=== PATIENT | male | born 1950 | race Caucasian/White ===

== ENCOUNTER 2024-07-29 05:54 | Emergency (ER) | payer OTHER, MEDICARE ==
[~2024-07-29] VITALS: Ht 167.6 cm; Wt 66.8 kg
[2024-07-29] MEDS ORDERED: EPINEPHrine HCL 1 MG/10 ML SYRG IV ONE (05:55)
[2024-07-29] MEDS ORDERED: ATROPINE SULF 1 MG/10ml SYR IM ONE (05:55)
[2024-07-29 05:57] VITALS: TEMP 97.6
--- NOTE | 2024-07-29 06:13 | ED.PDOC ---
HPI Comments 73 year old male presents to the ED with a chief complaint of chest pain onset 2 days. Patient states he began experiencing chest pain 2 days ago, noticed pain worsen today (07/29/24) around 01:00. He was sleeping when noticed pain worsen, pressure sensation radiating from RT side chest to RT hand with a tingling sensation, as well as shortness of breath. He denies any past cardiac medical history. During assessment, BP 154/88, HR 91, O2 sat 99% RA. PMHx HTN, DM, HLD. Denies abdominal pain, nausea, vomiting, diarrhea, fever, chills. No other symptoms or modifying factors present at this time. Chief Complaint: Chest Pain Time Seen by MD: 06:02 Reviewed Notes: Medications, Allergies Allergies: Coded Allergies: NO KNOWN ALLERGIES (Unverified , 07/29/24) Information Source: Patient Mode of Arrival: Ambulatory Severity: Moderate Timing: Days Duration: Since onset Prehospital treatment: None Location: Chest (R) Radiation: Hand (R) Quality: Pressure Onset: At Rest Cardiac Risk Factors: Hyperlipidemia, HTN, Diabetes PE Risk Factors: None History of: None Modifying Factors: Nothing Associated Signs and Symptoms: SOB Past Medical History PAST MEDICAL HISTORY: DM, High Lipids, HTN Surgical History: Denies all surgeries Family History Family History: Unknown Social History Smoker: Non-Smoker Alcohol: Denies ETOH Use Drugs: Denies Drug Use Lives In: Home Constitutional: denies: chills, diaphoresis, fatigue, fever, malaise, sweats, weakness, others EENTM: denies: blurred vision, double vision, ear bleeding, ear discharge, ear drainage, ear pain, ear ringing, eye pain, eye redness, hearing loss, mouth pain, mouth swelling, nasal discharge, nose bleeding, nose congestion, nose pain, photophobia, tearing, throat pain, throat swelling, voice changes, others Respiratory: reports: shortness of breath; denies: cough, hemoptysis, or thopnea, SOB at rest, SOB with excertion, stridor, wheezing, others Cardiovascular: reports: chest pain; denies: dizzy spells, diaphoresis, Dyspnea on exertion, edema, irregular heart beat, left arm pain, lightheadedness, palpitations, PND, syncope, others Gastrointestinal: denies: abdomen distended, abdominal pain, blood streaked bowels, constipated, diarrhea, dysphagia, difficulty swallowing, hematemesis, melena, nausea, poor appetite, poor fluid intake, rectal bleeding, rectal pain, vomiting, others Genitourinary: denies: burning, dysuria, flank pain, frequency, hematuria, incontinence, penile discharge, penile sore, pain, testicle pain, testicle swelling, urgency, others Neurological: denies: dizziness, fainting, headache, left sided numbness, left sided weakness, numbness, paresthesia, pre-existing deficit, right sided numbness, right sided weakness, seizure, speech problems, tingling, tremors, we akness, others Musculoskeletal: denies: back pain, gout, joint pain, joint swelling, muscle pain, muscle stiffness, neck pain, others Integumetry: denies: bruises, change in color, change in hair/nails, dryness, laceration, lesions, lumps, rash, wounds, others Allergic/Immunocompromised: denies: Difficulty Healing, Frequent Infections, Hives, Itching, others Hematologic/Lymphatic: denies: anemia, blood clots, easy bleeding, easy bruising, swollen glands, others Endocrine: denies: excessive hunger, excessive sweating, excessive thirst, excessive urination, flushing, intolerance to cold, intolerance to heat, unexplained weight gain, unexplained weight loss, others Psychiatric: reports: anxiety; denies: bipolar disorder, depression, hopeless, panic disorder, schizophrenia, sleepless, suicidal, others All Other Systems: Reviewed and Negative Physical Exam General Appearance: Moderate Distress, Normal, Other (anxious) HEENT: Normal ENT Inspection, Pharynx Normal, TMs Normal Neck: Full Range of Motion, Non-Tender, Normal, Normal Inspection Respiratory: Chest Non-Tender, Lungs Clear, No Accessory Muscle Use, No Respiratory Distress, Normal Breath Sounds Cardiovascular: No Edema, No JVD, No Murmur, No Gallop, Normal Peripheral Pulses, Regular Rate/Rhythm Breast Exam: Deferred Gastrointestinal: No Organomegaly, Non Tender, No Pulsatile Mass, Normal Bowel Sounds, Soft Genitalia: Deferred Pelvic: Deferred Rectal: Deferred Extremities: No calf tenderness, Normal capillary refill, Normal inspection, Normal range of motion, Non-tender, No pedal edema Musculoskeletal : Apperance: Normal 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 Anterior infract, acute (LAD) ST elevation V1 to V4, depression V6 with lateral leads. Consulted [employer] consumer services consultant Press Secretary, Dr. Sweeney. Stemi activated. EKG #2: Cardiac Rhythm: NSR (74 bpm) ST: Ant, Lat, Nonsp Comments Low voltage, precordial leads, Nonspecific T abnormalities, lateral leads, Borderline ST elevation, anterior leads. ST elevation V1 to V4, depression V6 with lateral leads. EKG #3: Comments ST elevation V1 to V4, depression V6 with lateral leads - decreased from 1st and 2nd EKG. Was a procedure done? Was a procedure done?: No CP Differential Dx Differential Diagnosis: Other (see below) Differential Diagnosis: Angina, Aortic dissection, Chest Wall Pain, Cholelithiasis, Costochondritis, Esophageal reflux/spasm, Gastritis, Myocardial Infarction, Pericarditis, Pneumonia, Pneumothorax, Pulmonary Embolus X-Ray, Labs, Meds, VS Vital Signs Date Time Temp Pulse Resp B/P (MAP) Pulse Ox O2 Delivery O2 Flow Rate FiO2 07/29/24 06:39 74 07/29/24 06:31 82 07/29/24 06:29 82 12 151/72 07/29/24 06:27 151/72 07/29/24 06:19 80 07/29/24 05:57 97.6 89 16 154/88 (110) 97 97.6 Lab Test 07/29/24 05:57 Range/Units White Blood Count 6.4 4.4-10.8 10^3/uL Red Blood Count 4.90 4.5-5.90 10^6/uL Hemoglobin 15.0 13.5-17.5 g/dL Hematocrit 43.6 41.0-53.0 % Mean Corpuscular Volume 88.9 80.0-100.0 fL Mean Corpuscular Hemoglobin 30.6 28.0-32.0 pg Mean Corpuscular Hemoglobin Concent 34.4 32.0-36.0 g/dL Red Cell Distribution Width 12.9 11.8-14.3 % Platelet Count 166 140-450 10^3/uL Mean Platelet Volume 9.3 6.9-10.8 fL Neutrophils (%) (Auto) 69.5 37.0-80.0 % Lymphocytes (%) (Auto) 16.5 10.0-50.0 % Monocytes (%) (Auto) 11.6 0.0-12.0 % Eosinophils (%) (Auto) 1.6 0.0-7.0 % Basophils (%) (Auto) 0.8 0.0-2.0 % Neutrophils # (Auto) 4.4 1.6-8.6 10 ^3/uL Lymphocytes # (Auto) 1.1 0.4-5.4 10 ^3/uL Monocytes # (Auto) 0.7 0-1.3 10 ^3/uL Eosinophils # (Auto) 0.1 0-0.8 10 ^3/uL Basophils # (Auto) 0.1 0-0.2 10 ^3/uL Nucleated Red Blood Cells 0.1 % Sodium Level 139 136-145 mmol/L Potassium Level 3.3 L 3.5-5.1 mmol/L Chloride Level 104 98-107 mmol/L Carbon Dioxide Level 25 20-31 mmol/L Anion Gap 10 5-15 Blood Urea Nitrogen 15 9-23 mg/dL Creatinine 1.13 0.700-1.30 mg/dL Glomerular Filtration Rate Calc 68 >90 mL/min BUN/Creatinine Ratio 13.3 10.0-20.0 Serum Glucose 306 H 74-106 mg/dL Calcium Level 9.5 8.7-10.4 mg/dL Magnesium Level 1.9 1.6-2.6 mg/dL Total Bilirubin 0.6 0.2-1.0 mg/dL Aspartate Amino Transferase (AST) 32 13-40 U/L Alanine Aminotransferase (ALT) 39 7-40 U/L Alkaline Phosphatase 117 H 46-116 U/L Troponin I High Sensitivity 467 *H </=54 ng/L Total Protein 6.5 5.7-8.2 g/dL Albumin 4.2 3.2-4.8 g/dL Current Medications Medications (Trade) Dose Ordered Sig/Epi Route Start Time Stop Time Status Last Admin Aspirin 324 mg ONCE ONCE PO 07/29/24 06:15 07/29/24 06:16 DC 07/29/24 06:27 Nitroglycerin (Ntrostat Sublingual) 0.4 mg ONCE ONCE SL 07/29/24 06:30 07/29/24 06:31 DC 07/29/24 06:27 Morphine Sulfate 2 mg ONCE ONCE IV 07/29/24 06:30 07/29/24 06:31 DC 07/29/24 06:29 Clopidogrel Bisulfate (Plavix) 600 mg ONCE ONCE PO 07/29/24 06:30 07/29/24 06:31 DC 07/29/24 06:31 Time of 1ST Reevaluation: 06:32 Reevaluation 1ST: Unchanged Time of 2ND Reevaluation: 06:40 Reevaluation 2ND: Improved Patient Education/Counseling: Diagnosis, Treatment, Prognosis, Need For Follow Up Family Education/Counseling: No Family Present Additional Information The following tests were ordered, and results were reviewed by me: TROP -X3, EKG -X3, CBC, CMP, MAGNESIUM, XY CHEST I reviewed and agreed with the following test results read by other providers: XY CHEST I discussed treatment and results with medical personnel and: Patient AND Dr Sweeney, cardiology pt was taken to slab off mill tender with STEMI activated. his symptoms improved with no significant dynamic EKG changes Departure 1 Departure Time of Disposition: 07:13 Impression: Primary Impression: STEMI (ST elevation myocardial infarction) Disposition: ADMITTED INPATIENT Admit to: slab off mill tender Condition: Serious Critical Care Note Critical Care Time?: Yes (35 min-critical care time only) Critical care comment: Due to concerns for patients condition deteriorating, the care required my highest level of attention and readiness to intervene. I assessed the patient, reviewed the medical records, ordered the appropriate tests and treatments, then reassessed for results and responsiveness. I communicated with medical personnel and consultants and formulated a plan of care. Total critical care time excludes any procedures Stability Stability form required: No Heart Score Heart Score: Heart Score Response (Comments) Value History Highly Suspicious [address]-Deviation 2 Age >65 2 Risk Factors >3 or Hx ASHD 2 Troponin >3 x's Normal limit 2 Total 10 I personally scribed for MARTY GUTIÉRREZ MD ([email or web address]) on 07/29/24 at 06:13. Electronically submitted by Rupal Abbasi ([email or web address]). I personally scribed for MARTY GUTIÉRREZ MD ([email or web address]) on 07/29/24 at 06:18. Electronically submitted by Rupal Abbasi ([email or web address]). I personally scribed for MARTY GUTIÉRREZ MD ([facility]) on 07/29/24 at 06:31. Electronically submitted by Rupal Abbasi ([email or web address]). I personally scribed for MARTY GUTIÉRREZ MD ([facility]) on 07/29/24 at 06:42. Electronically submitted by Rupal Abbasi ([email or web address]). I personally scribed for MARTY GUTIÉRREZ MD ([facility]) on 07/29/24 at 06:54. Electronically submitted by Rupal Abbasi ([email or web address]). I personally scribed for MARTY GUTIÉRREZ MD ([facility]) on 07/29/24 at 06:58. Electronically submitted by Rupal Abbasi ([email or web address]). MARTY GUTIÉRREZ MD Jul 29, 2024 06:13
[2024-07-29] MEDS: NITROGLYCERIN 0.4 MG SL TAB SL ONE (06:27)
[2024-07-29] MEDS: ASPirin 81 mg TAB PO ONE (06:27)
[2024-07-29] MEDS: MORPHINE SULFATE INJ 2 MG/ml SYRG IV ONE (06:29)
[2024-07-29] MEDS: CLOPIDOGREL BISULFATE 75 MG TAB PO ONE (06:31)
[2024-07-29 06:32] LABS: Basophils # (auto) 0.1 10 ^3/uL (0-0.2); Basophils % (auto) 0.8 % (0.0-2.0); Eosinophils # (auto) 0.1 10 ^3/uL (0-0.8); Eosinophils % (auto) 1.6 % (0.0-7.0); Hematocrit 43.6 % (41.0-53.0); Lymphocytes # (auto) 1.1 10 ^3/uL (0.4-5.4); Lymphocytes % (auto) 16.5 % (10.0-50.0); Mean Corpuscular Hemoglobin 30.6 pg (28.0-32.0); Mean Corpuscular Hgb Conc. 34.4 g/dL (32.0-36.0); Mean Corpuscular Volume 88.9 fL (80.0-100.0); Monocytes # (auto) 0.7 10 ^3/uL (0-1.3); Monocytes % (auto) 11.6 % (0.0-12.0); Neutrophils # (auto) 4.4 10 ^3/uL (1.6-8.6); Neutrophils % (auto) 69.5 % (37.0-80.0); Nucleated Red Blood Cells % 0.1 %; Platelet Count (auto) 166 10^3/uL (140-450); Red Cell Distribution Width 12.9 % (11.8-14.3); White Blood Cell 6.4 10^3/uL (4.4-10.8)
--- NOTE | 2024-07-29 06:39 | DVH ---
CHEST RADIOGRAPH Indication: cp Technique: Single frontal view of the chest was obtained COMPARISON: None FINDINGS: Lines and Tubes: None Lungs: Clear Pleura: No effusion. No pneumothorax. Cardiomediastinal contours: Unremarkable Bones: Unremarkable IMPRESSION: No acute disease.
--- NOTE | 2024-07-29 06:42 | ECG ---
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
[2024-07-29 06:45] VITALS: BP 136/83; PULSE 72; RESP 14; O2SAT 98
[2024-07-29] MEDS ORDERED: ANGIOMAX 250 MG VIAL IV ONE ×2 (06:46→07:52)
[2024-07-29] MEDS ORDERED: HEPARIN SODIUM (PORCINE) 5000 UNITS/ML 1ML VIAL ONE (06:46)
[2024-07-29] MEDS ORDERED: MIDAZOLAM HCL 2MG/2ML 2ml VIAL (1mg/ml) ONE (06:47)
[2024-07-29] MEDS ORDERED: VERAPAMIL 2.5MG/ML INJ 2ML VIAL IV ONE (06:47)
[2024-07-29] MEDS ORDERED: fentaNYL CITRATE 100 MCG/2 ML VL ONE (06:47)
[2024-07-29] MEDS ORDERED: SODIUM CHL 0.9% 50 ML ONE ×2 (06:47→07:52)
[2024-07-29] MEDS ORDERED: IODIXANOL 320MG/ML 100ML BTL IV ONE ×2 (06:47→07:56)
[2024-07-29] MEDS ORDERED: NITROGLYCERIN 50MG/250ML 250 ML IV ONE (06:47)
[2024-07-29] MEDS ORDERED: HEPARIN IN NS 1000Units/500mL 1,500 ML ONE (06:48)
[2024-07-29] MEDS ORDERED: LIDOCAINE 2%HCL (LOCAL ANESTH.) INJ 20ML MDV ONE (06:48)
[2024-07-29 06:52] LABS: Alanine Aminotransferase 39 U/L (7-40); Albumin 4.2 g/dL (3.2-4.8); Anion Gap 10 (5-15); Aspartate Aminotransferase 32 U/L (13-40); BUN/Creatinine Ratio 13.3 (10.0-20.0); Blood Urea Nitrogen 15 mg/dL (9-23); Calcium 9.5 mg/dL (8.7-10.4); Carbon Dioxide 25 mmol/L (20-31); Chloride 104 mmol/L (98-107); Magnesium 1.9 mg/dL (1.6-2.6); Sodium 139 mmol/L (136-145); Total Protein 6.5 g/dL (5.7-8.2)
[2024-07-29 06:53] LABS: Bilirubin, Total 0.6 mg/dL (0.2-1.0)
[2024-07-29 06:54] LABS: Alkaline Phosphatase 117 U/L (46-116); Glucose 306 mg/dL (74-106); Potassium 3.3 mmol/L (3.5-5.1)
[2024-07-29] MEDS ORDERED: ATROPINE SULF 1 MG/10ml SYR ONE (08:13)
[2024-07-29] MEDS ORDERED: ONDANSETRON HCL 4 MG/2 ML VIAL ONE (08:20)
[2024-07-29] MEDS ORDERED: NOREPINEPHRINE 8 MG/250ML KIT 250 ML IV ONE (08:24)
[2024-07-29] MEDS ORDERED: PHENYLEPHRINE IV 250 ML IV ONE (08:39)
--- NOTE | 2024-07-29 09:11 | DVHINCON2 ---
Date Seen: Jul 29, 2024 Referring Physician Emergency room Reason for Consultation Acute myocardial infarction /STEMI History of Present Illness 73-year-old gentleman with a history of hypertension presents with chest pain of two days duration. Intermittently on and off. It restarted again at 1:00 a.m. this morning. He came to the emergency room and was noted to have Q-waves throughout the anterior lateral leads suggesting a completed infarct. Given he was still having some degree of chest pain he was deemed a candidate for cardiac catheterization. He was taken to the cardiac catheterization laboratory urgently. Past Medical History Patient has a history of diabetes mellitus he states for about 10 years as well as hypertension and hyperlipidemia. He has had three previous surgeries all related to dermatological issues . Past Surgical History Past surgical history significant per dermatology surgery. Nothing else Family History Noted history of coronary disease. His parents in their 50s Social History He is a nondrinker nonsmoker. He is lives with his and has ch ildren Allergies: Coded Allergies: NO KNOWN ALLERGIES (Unverified , 07/29/24) Review of Systems No constitutional symptoms of fevers chills or weight loss. Cardiac and respiratory negative with the exception of that noted above. Chest pain started several months ago in recurred most recently over the last several days. GI and Negative. Musculoskeletal endocrine hematologic negative. Vital Signs Vital Signs Date Time Temp Pulse Resp B/P (MAP) Pulse Ox O2 Delivery O2 Flow Rate FiO2 07/29/24 06:39 74 07/29/24 06:29 12 151/72 07/29/24 05:57 97.6 97 97.6 Physical Exam Patient is awake alert and oriented he has a [id number] pain. HEENT examination is otherwise unremarkable well hydrated moderate jugular distention no carotid bruits. Lungs reveal crackles at the bases. Heart exam reveals an S4 gallop. Abdominal examination is unremarkable. Extremities reveal perfusion without clubbing cyanosis no edema. Neurologically intact. Integumentary is otherwise within normal limits. He is not clammy or diaphoretic. Labs/Diagnostic Data Labs Test 07/29/24 05:57 Range/Units White Blood Count 6.4 4.4-10.8 10^3/uL Red Blood Count 4.90 4.5-5.90 10^6/uL Hemoglobin 15.0 13.5-17.5 g/dL Hematocrit 43.6 41.0-53.0 % Mean Corpuscular Volume 88.9 80.0-100.0 fL Mean Corpuscular Hemoglobin 30.6 28.0-32.0 pg Mean Corpuscular Hemoglobin Concent 34.4 32.0-36.0 g/dL Red Cell Distribution Width 12.9 11.8-14.3 % Platelet Count 166 140-450 10^3/uL Mean Platelet Volume 9.3 6.9-10.8 fL Neutrophils (%) (Auto) 69.5 37.0-80.0 % Lymphocytes (%) (Auto) 16.5 10.0-50.0 % Monocytes (%) (Auto) 11.6 0.0-12.0 % Eosinophils (%) (Auto) 1.6 0.0-7.0 % Basophils (%) (Auto) 0.8 0.0-2.0 % Neutrophils # (Auto) 4.4 1.6-8.6 10 ^3/uL Lymphocytes # (Auto) 1.1 0.4-5.4 10 ^3/uL Monocytes # (Auto) 0.7 0-1.3 10 ^3/uL Eosinophils # (Auto) 0.1 0-0.8 10 ^3/uL Basophils # (Auto) 0.1 0-0.2 10 ^3/uL Nucleated Red Blood Cells 0.1 % Sodium Level 139 136-145 mmol/L Potassium Level 3.3 L 3.5-5.1 mmol/L Chloride Level 104 98-107 mmol/L Carbon Dioxide Level 25 20-31 mmol/L Anion Gap 10 5-15 Blood Urea Nitrogen 15 9-23 mg/dL Creatinine 1.13 0.700-1.30 mg/dL Glomerular Filtration Rate Calc 68 >90 mL/min BUN/Creatinine Ratio 13.3 10.0-20.0 Serum Glucose 306 H 74-106 mg/dL Calcium Level 9.5 8.7-10.4 mg/dL Magnesium Level 1.9 1.6-2.6 mg/dL Total Bilirubin 0.6 0.2-1.0 mg/dL Aspartate Amino Transferase (AST) 32 13-40 U/L Alanine Aminotransferase (ALT) 39 7-40 U/L Alkaline Phosphatase 117 H 46-116 U/L Troponin I High Sensitivity 467 *H </=54 ng/L Total Protein 6.5 5.7-8.2 g/dL Albumin 4.2 3.2-4.8 g/dL EKG shows sinus rhythm. Q-waves throughout the anterior lateral leads suggesting a completed myocardial infarction. ST elevations noted. Anterior leads affected. Assessment Recent/Acute myocardial infarction. Probably completed Infarct. diabetes hypertension. Hyperlipidemia. Plan/Recommendation Given patient is still has a recurrent chest pain we will Take patient to cytogenetics laboratory manager for salvage angioplasty risks and benefits explained. Approximately 60 minutes was taken in evaluating and coordinating the care Plan discussed with: Patient, Spouse NYHA Physical activity limitations: Class3(Marked) ordinary Date of Service: Jul 29, 2024 Billing Provider: JOSE ROBERTO VEGAS Sr., MD Cardiology Common Codes: 82840-QOPWAFC INP/OBS CARE (High) Cardiology Procedure Codes: 56200-JBVWUV VESSEL W/I VASC FAM, 58010 -PTCA W/STENT PLACEMENT, 90722-FBZF FOR STEMI W/STENT, 18214-MWQB ADD COR ART/BRNCH/GRFT, 83489-WGRI HEART CATH W/INTRA INJ JOSE ROBERTO VEGAS Sr., MD Jul 29, 2024 09:11
--- NOTE | 2024-07-29 09:29 | DVHOP2 ---
Operative Report - 2 Report Details Date: 07/29/24 Preop Diagnosis: recent/acute ST segment elevation myocardial infarction Postop Diagnosis: Myocardial infarction. Cardiogenic shock. Ischemic cardiomyopathy. Surgeon: Jose Roberto Sweeney MD Anesthesiologist: Conscious sedation. Anesthesia: Mac, Local ( % and fentanyl throughout the procedure. I personally supervised the administration monitoring of the patient throughout.) Consent: The patient was informed of the risks and benefits of the procedure. These include but are not limited to complications of anesthesia, postoperative infection, incomplete relief of symptoms, recurrence of symptoms, damage to blood vessels, nerves and tendons, deep venous thrombosis, pulmonary embolism and possible need for repeat surgery in the future. Complications: Occlusion of RCA .cardiogenic shock Estimated Blood Loss: 10 cc Findings: Occluded LAD. Severe stenosis of the RCA with multi lesions. Indications for Surgery: Occluded LAD. Severely stenotic RCA. Name of Procedure Performed Bilateral cine coronary angiography ventriculography. PTCA stenting aperture rule LAD. Unsuccessful angioplasty of the RCA. Procedure Details Procedure Details: Prior local anesthesia with 2% lidocaine to the right wrist and full informed consent obtained. Patient was prepped and draped in usual fashion followed by placement of a six [place]ian sheath into the right radial artery. A 3-0 EBU guide was then placed into the ventricle and ventriculography performed. We used the coring to cannulate the RCA and left main. Hemodynamics aortic blood pressure was 90/50. End-diastolic pressure was 18. There was no gradient across the aortic valve on pullback. Coronary anatomy RCA has a shepherds crook its proximal portion and is normal. Ostial and proximal segment. At its mid segment there is a 99% stenosis follow up on a tandem lesion of another 99% stenosis tandem and distal to mid lesion there was diminished JENY one flow to the posterolateral and PDA. Left main is normal. Left anterior descending is a large vessel. It is occluded 100% proximally. The circumflex has two marginals free of significant disease. Ventriculography in the [place] projection shows an EF of approximately 25% with anterior apical and inferior apical and mid inferior wall hypokinesis to akinesis. Anterior apical segment is akinetic with an enlarged left ventricle. Salvage angioplasty was performed for which we 3.0 EBU guide was then placed into the left main and a Specter wire used to cross the area of occlusion. This vessel was noted to be tortuous and ectatic. We identified several lesions in the proximal portion however there was associated spasm. We gave approximately 400 mcg intracoronary nitroglycerin to help relieve the spasm. Did see what appeared to be significant relief of spasm on for which the we then placed an intravascular ultrasound device to evaluate the LAD. We noted several areas of disease from the midportion proximally. We placed a 12 by 18 mm Medtronic alfredito drug-eluting stent into the mid to proximal portion and overlapping slightly a 34 by three point 0 stent from the proximal LAD to the mid LAD slightly overlapping the initial stent. There was notable improvement in flow however t here was still JENY two flow only. We then addressed the lesion in the RCA. We were able to pass a wire distally. Patient did develop bradycardia however upon further attempting to perform angioplasty on the mid lesions. There was a dissection in the right coronary artery just proximal to the 1st lesion. The patient became suddenly bradycardic a given associated severe spasm of the RCA , he became restless and moved his hand from leaflets position where we had the guide inserted. Upon his movement in the cardiac catheterization table and movement of his arm the guide was dislodged from the coronary and the wire was pulled and we lost position Of the guidewire and we were unable to regain access quickly enough to obtain flow into the RCA. . Code was called and we gave several rounds of epinephrine and atropine. CPR was instituted. We did place a temporary pacemaker into RV apex. A sheath was placed into the femoral artery and femoral vein at this point. We attempted to replace catheter in RCA however we were not able to regain a pulse. The code was called at 8:47 a.m.. Impression: Successful angioplasty of the LAD. Unsuccessful angioplasty of RCA with the abrupt closure and bradycardia leading to cardiogenic shock and . unsuccessful attempts to resuscitate patient During this salvage angioplasty procedure. Condition Poor Disposition at Hospital ( Fat Purification Worker was called. I spoke to the family.) Date of Service: Jul 29, 2024 Billing Provider: JOSE ROBERTO SWEENEY Sr., MD Cardiology Common Codes: 57962-WORSTNH INP/OBS CARE (High) JOSE ROBERTO SWEENEY Sr., MD Jul 29, 2024 09:28
--- NOTE | 2024-07-29 09:33 | RESUS ---
CODE BLUE ASSESSSMENT History of Events History of Events: ARRIVED TO ER THIS AM WITH CHEST PAIN. CODE STEMI WAS CALLED AND TAKEN TO BEAUTY CULTURE TEACHER. PATIENT WENT BRADYCARDIC AND RAPID RESPONSE WAS CALLED AT 0816 IN BEAUTY CULTURE TEACHER. UPON ARRIVAL TO BEAUTY CULTURE TEACHER PATIENT WAS ALREADY GIVEN ATROPINE BY BEAUTY CULTURE TEACHER TEAM AND PATIENT HAD PULSE. PATIENT THEN LOST PULSE AT 0828 AND CPR WAS INITIATED. Initial Information Date: Jul 29, 2024 Time: 08:28 Location of Arrest: ER Arrest Witnessed: Yes CPR started initial time: 08:28 CPR started by whom: Hospital Staff Type of arrest: Cardiac, Adult, Witnessed Spontaneous Respirations: No Pulse Present: No Monitoring: ECG, Pulse Oximetry Crash Cart Opened and Supplies: Yes Airway Ventilation Breathing at Onset: Assisted Oxygen Delivery Method: Ambu-Bag Time of first Assisted Ventila: 08:29 Artificial Ventilation: Bag/Mask Intubation Time: 08:32 Intubation Size: 8.0 cuffed Intubated by: SONYA NAIR Intubated orally: Yes Tube secured at: 24 Confirmation: Auscultation, Exhaled CO2 Circulation Circulation #1: Time: 08:28 Pulse Rate (adult): 0 Blood Pressure Systolic: 0 Blood Pressure Diastolic: 0 Circulation #2: Time: 08:30 Pulse Rate (adult): 0 Blood Pressure Systolic: 0 Blood Pressure Diastolic: 0 Circulation #3: Time: 08:32 Pulse Rate (adult): 72 Blood Pressure Systolic: 73 Blood Pressure Diastolic: 38 Circulation Comment: ROSC, LEVOPHED AT MAX RATE Circulation #4: Time: 08:39 Pulse Rate (adult): 0 Blood Pressure Systolic: 0 Blood Pressure Diastolic: 0 Circulation Comment: SECOND CODE BLUE Circulation #5: Time: 08:41 Pulse Rate (adult): 0 Blood Pressure Systolic: 0 Blood Pressure Diastolic: 0 Circulation #6: Time: 08:43 Pulse Rate (adult): 0 Blood Pressure Systolic: 0 Blood Pressure Diastolic: 0 Circulation #7: Time: 08:45 Pulse Rate (adult): 0 Blood Pressure Systolic: 0 Blood Pressure Diastolic: 0 Circulation #8: Time: 08:47 Pulse Rate (adult): 0 Blood Pressure Systolic: 0 Blood Pressure Diastolic: 0 Circulation Comment: TIME OF Medications & Response Medications and Responses #1: Medication Time: 08:16 ADULT Medications Given ADULT: Atropine 1 mg Route of Administration: IV Medication Comment: GIVEN BY BEAUTY CULTURE TEACHER TEAM DURING RAPID RESPONSE Medications and Responses #2: Medication Time: 08:28 ADULT Medications Given ADULT: Epinephrine 1 mg, Sodium Bacarbinate 50 meq Route of Administration: IV Medications and Responses #3: Medication Time: 08:32 ADULT Medications Given ADULT: 2 Amps Na Bicarb Route of Administration: IV Medications and Responses #4: Medication Time: 08:39 ADULT Medications Given ADULT: Epinephrine 1 mg Route of Administration: IV Medications and Responses #5: Medication Time: 08:43 ADULT Medications Given ADULT: Epinephrine 1 mg, Atropine 1 mg, Sodium Bacarbinate 50 meq Route of Administration: IV Medications and Responses #6: Medication Time: 08:45 ADULT Medications Given ADULT: Sodium Bacarbinate 50 meq Route of Administration: IV Medications and Responses #7: Medication Time: 08:46 ADULT Medications Given ADULT: Epinephrine 1 mg Route of Administration: IV Pacing Comments: PLACED TRANSVENOUS PACER DURING CODE Nurses Notes Yue Coma Scale Eye Opening: None (1) Yue Coma Scale Verbal: None (1) Wilson Coma Scale Motor: None (1) Pupil Reaction: Non Reactive Bedside Blood Glucose: 251 EKG Rhythm: Asystole Nurses Notes - Comment: WAS OFFERED TO SEE PATIENT AFTER EXPIRATION AND WAS TAKEN TO BEAUTY CULTURE TEACHER. Time Code Ended Time Code Ended: 08:47 Post Arrest Status: Outcome of code: Unsuccessful Patient pronounced by: DR VEGAS Time patient pronounced: 08:47 Family notified: Yes (DR VEGAS SPOKE WITH JACOB) Code Team Present: SHAHEEN WALSH SENIOR JAVA DATA ARCHITECT, GHAZAL BALL BEAUTY CULTURE TEACHER CHARGE, ZACHARY NEWSPAPER PHOTOGRAPHER, NATALIA Tadeo NEWSPAPER PHOTOGRAPHER, ELSA Cruz BEAUTY CULTURE TEACHER RN, ANALY ICU CHARGE, VERN BALL ICU, SONYA RTEMERITA. Shaheen Givens Jul 29, 2024 09:33
[2024-07-31] MEDS ORDERED: LEVALBUTEROL HCL 1.25 MG/3 ML NEB ONE (06:06)
--- NOTE | 2024-07-31 13:15 | ECG ---
[facility] Test Date: 2024-07-29 Test Time: 06:06:09 Pat Name: JUSTICE BUSH Department: TRIAGE Room: Gender: M Survey Superintendent: VIRGILIO : 1950 Requested By: SCOTT VALENTINE Order Number: [id number] Reading MD: Measurements Intervals [place] Rate: 84 P: 12 AL: 179 QRS: -3 QRSD: 157 T: 68 QT: 399 QTc: 472 Interpretive Statements Sinus tachycardia Multiform ventricular premature complexes Nonspecific intraventricular conduction delay Anterior infarct, acute (LAD) Please click the below link to view image of tracing.
--- NOTE | 2024-07-31 13:15 | ECG ---
[facility] Test Date: 2024-07-29 Test Time: 06:00:15 Pat Name: JUSTICE BUSH Department: TRIAGE Room: Gender: M Director Prospect: VIRGILIO : 1950 Requested By: SCOTT VALENTINE Order Number: [id number] Reading MD: Measurements Intervals [employer] Rate: 78 P: 31 LA: 181 QRS: -4 QRSD: 84 T: 98 QT: 380 QTc: 433 Interpretive Statements Sinus rhythm Ventricular premature complex Probable left atrial enlargement Anterior infarct, acute (LAD) Please click the below link to view image of tracing.
--- NOTE | 2024-07-31 14:51 | ECG ---
[facility] Test Date: 2024-07-29 Test Time: 06:06:49 Pat Name: JUSTICE BUSH Department: TRIAGE Room: Gender: M Paper Sales Manager: : 1950 Requested By: MARTY GUTIÉRREZ Order Number: [id number] Reading MD: Measurements Intervals [place] Rate: 80 P: 37 VA: 183 QRS: -4 QRSD: 90 T: 98 QT: 366 QTc: 423 Interpretive Statements Sinus rhythm Anterior infarct, acute (LAD) Please click the below link to view image of tracing.
== END 2024-07-29 06:50 ==
LOC: ER 05:54
DX: I21.3 ST elevation (STEMI) myocardial infarction of unspecified site (principal); E11.9 Type 2 diabetes mellitus without complications; E78.5 Hyperlipidemia, unspecified; I10 Essential (primary) hypertension
CPT/HCPCS: 31500; 36415; 71045; 80053; 82947; 83735; 84484; 85025; 92950; 93005; 96374; 99291; C1725; C1751; C1753; C1769; C1874; C1887; C1894; J0171; J0583; J1644; J2250; J2270; J2370; J2405; J3010; Q9967; 82962; 99152; 99153